=== PATIENT | male | born 1975 | race Caucasian/White ===

== ENCOUNTER → 2018-12-30 | Outpatient (CLI) | payer OTHER ==
[~2018-12-30] MED LIST: IBUPROFEN 600600 M1 PO; NORCO 5-325 TA1 EACH PO; NORVASC2.5 MG PO
== END ==
LOC: M.MRI 16:14
DX: M22.42 Chondromalacia patellae, left knee (principal)

== ENCOUNTER 2019-02-01 10:35 | Emergency (ER) | payer OTHER ==
[~2019-02-01] VITALS: Ht 193 cm; Wt 115.7 kg
[2019-02-01 10:39] VITALS: BP 165/118
[2019-02-01] MEDS ORDERED: NORVASC5 M1 PO (10:43)
[2019-02-01] MEDS ORDERED: PROPANOLOL (10:43)
[2019-02-01 11:47] LABS: ABSOLUTE LYMPHOCYTES 1.2 thou/uL (0.8-5.3); ABSOLUTE MONOCYTES 0.8 thou/uL (0.0-1.2); ABSOLUTE NEUTROPHILS 10.4 thou/uL (1.6-8.1); BASOPHILS 0.4 %; EOSINOPHILS 0.1 %; HEMATOCRIT 53.1 % (42.0-52.0); HEMOGLOBIN 18.3 gm/dL (14.0-18.0); LYMPHOCYTES 9.4 %; MCH 35.1 pg (26.0-34.0); MCHC 34.5 g/dL (28.0-37.0); MCV 101.7 fL (80.0-100.0); MONOCYTES 6.2 %; MPV 6.9 fl. (7.2-11.1); NUCLEATED RBCS 0 /100WBC; PLATELET COUNT* 205 thou/uL (150-400); POLYS 83.9 %; RBC 5.22 mil/uL (4.50-6.00); WBC 12.4 thou/uL (4.0-11.0)
[2019-02-01 11:58] LABS: BE 5.6 mmol/L (-2 to +3); PCO2 41.6 mmHg (35.0-45.0); PO2 84.8 mmHg (75.0-100.0); pH 7.474 (7.340-7.450)
[2019-02-01 11:58] LABS: ANION GAP 6 mmol/L (7-16); BUN 5 mg/dL (7-18); CALCIUM 9.3 mg/dL (8.5-10.1); CHLORIDE 101 mmol/L (98-107); CO2 34 mmol/L (21-32); CREATININE 1.3 mg/dL (0.6-1.3); GLUCOSE 135 mg/dL (70-99); POTASSIUM 4.2 mmol/L (3.5-5.1); SODIUM 141 mmol/L (136-145)
[2019-02-01 12:09] LABS: ALBUMIN 3.3 g/dL (3.4-5.0); ALKALINE PHOSPHATASE 89 U/L (46-116); MAGNESIUM 1.7 mg/dL (1.8-2.4); NT-PRO BRAIN NAT PEPTIDE 74 pg/mL (<300); SGOT 137 U/L (15-37); SGPT 206 U/L (30-65); TOTAL BILIRUBIN 1.2 mg/dL (<0.1-1.0); TOTAL PROTEIN 8.1 g/dL (6.4-8.2); TROPONIN-I LEVEL <0.06 ng/mL (<0.06)
--- NOTE | 2019-02-01 14:35 | EKG ---
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 : 1975 Requested By: Joselin Bonner Order Number: [id number] MD: Jose Martin Rendon Measurements Intervals [place] Rate: 79 P: 24 ID: 139 QRS: 10 QRSD: 88 T: 3 QT: 428 QTc: 491 Interpretive Statements Sinus rhythm Borderline prolonged QT interval Compared to ECG 06/26/2013 17:38:14 No significant changes Electronically Signed On 02-01-2019 14:35:23 CDT by Jose Martin Rendon [email or web address] <ELECTRONICALLY SIGNED> By: Jose Martin Rendon MD, [facility] 02/01/19 1435 1048 1048 Jose Martin Rendon MD, FACC /EPI
--- NOTE | 2019-02-01 14:36 | EKG ---
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 : 1975 Requested By: Joselin Bonner Order Number: [id number] MD: Francoise Rendon Measurements Intervals [place] Rate: 105 P: 40 VA: 139 QRS: 38 QRSD: 97 T: 6 QT: 435 QTc: 576 Interpretive Statements Sinus tachycardia ventricular premature complexes Abnormal R-wave progression, early transition Baseline wander in lead(s) II,III,aVR,aVF,V1,V2,V4 Electronically Signed On 02-01-2019 14:36:33 CDT by Francoise Rendon [email or web address] <ELECTRONICALLY SIGNED> By: Francoise Rendon MD, [facility] 02/01/19 1436 1302 1302 Francoise Rendon MD, FACC /EPI
[2019-02-01 15:00] LABS: BE 1.8 mmol/L (-2 to +3); pH 7.355 (7.340-7.450)
[2019-02-01 15:02] LABS: PCO2 52.7 mmHg (35.0-45.0); PO2 192.3 mmHg (75.0-100.0)
[2019-02-01 15:06] LABS: URINE BILIRUBIN NEGATIVE (Negative); URINE BLOOD NEGATIVE (Negative); URINE CLARITY CLEAR; URINE COLOR YELLOW; URINE GLUCOSE-RANDOM NEGATIVE (Negative); URINE KETONES NEGATIVE (Negative); URINE LEUKOCYTES-REFLEX NEGATIVE (Negative); URINE NITRITE-REFLEX NEGATIVE (Negative); URINE PROTEIN TRACE (Negative); URINE SPECIFIC GRAVITY <= 1.005 (1.005-1.030); URINE UROBILINOGEN 0.2 E.U./dl (0.2-1.0)
--- NOTE | 2019-02-01 16:07 | NUR ---
PATIENT EVALUATED FOR CENTRAL LINE PLACEMENT WITH ULTRASOUND GUIDANCE. RIGHT INTERNAL JUGULAR WELL ENGORGED AND COMPRESSIBLE. RISKS AND BENEFITS DISCUSSED WITH FAMILY MEMBERS BY DR. REICH, UNDERSTANDING OF RISKS AND NECESSITY VERBALIZED. PATIENT PLACED SUPINE POSITION AND PREPPED WITH CHLOROPREP PER CENTRAL LINE PLACEMENT POLICY. STERILE FIELD ESTABLISHED AND PATIENT DRAPED HEAD TO TOE FOR THE PROCEDURE. RIGHT INTERNAL JUGULAR VESSEL ACCESSED FOR TRIPLE LUMEN CENTRAL LINE WITH J.A.C.C. KIT MICROINTRODUCER. LINE PASSED THROUGH DILATOR WITH NO RESISTANCE MET TO THE 20CM NACHO. GOOD BRISK BLOOD RETURN AND TENZIN FLUSHING APPRECIATED. STATLOCK SECUREMENT DEVICE APPLIED, INSERTION SITE DRESSED AND CHEST X-RAY ORDERED. DR VALLE TO READ AND CLEAR FOR USE. ABOVE PROCEDURE SUPERVISED BY DR GAN.
[2019-02-01 16:26] VITALS: BP 101/64
[2019-02-01 16:27] VITALS: BP 133/88
== END 2019-02-01 16:26 | disposition short-term general hospital (02) ==
LOC: M.ERS 10:35 → M.TBA-ER 15:04 → M.ERS 16:26
PROVIDERS: Personal Emergency Response Attendant
DX: J96.90 Respiratory failure, unspecified, unspecified whether with hypoxia or hypercapnia (principal); R11.2 Nausea with vomiting, unspecified